=== PATIENT | female | born 1980 | race Caucasian/White ===

== ENCOUNTER 2018-02-23 00:33 | Emergency (ER) | payer SELFPAY ==
[~2018-02-23] VITALS: Ht 157.5 cm; Wt 64.0 kg
[2018-02-23 00:47] VITALS: BP 105/67
== END 2018-02-23 03:29 | disposition left against medical advice (07) ==
LOC: ER 00:33
DX: Z53.21 Procedure and treatment not carried out due to patient leaving prior to being seen by health care provider (principal)